=== PATIENT | female | born 1955 | race Caucasian/White ===

== ENCOUNTER 2020-09-03 07:46 | Inpatient (IN) | payer OTHER ==
[~2020-09-03] VITALS: Ht 172.7 cm; Wt 114.3 kg
[~2020-09-03 07:46] MED LIST: LOMOTIL1 EA GT; Z CIPRO PO; Z.0.BENICAR20 MG PO; Z.0.FLAGYL500 MG PO; [UNRECOGNIZED DRUG - OTHER] PO
[2020-09-03] MEDS ORDERED: SODIUM CHLORIDE 0.9% 1000ML 1,000 ML IV STA (07:59)
[2020-09-03 08:26] LABS: BASOPHILS # (AUTO) 0.1 (0.0-0.1); BASOPHILS % 0.6 % (0.0-1.0); EOSINOPHILS # (AUTO) 0.3 (0.0-0.4); EOSINOPHILS % 1.6 % (0.0-6.0); HEMATOCRIT 42.9 % (34.2-44.1); HEMOGLOBIN 13.5 g/dL (12.0-16.0); LYMPHOCYTES # (AUTO) 2.4 (1.0-3.2); LYMPHOCYTES % 15.7 % (18.0-39.1); MEAN CORPUSCULAR HEMOGLOBIN 28.6 pg (28-32); MEAN CORPUSCULAR HGB CONC 31.5 g/dL (31-35); MEAN CORPUSCULAR VOLUME 90.9 fL (81-99); MONOCYTES # (AUTO) 1.6 (0.2-0.8); MONOCYTES % 10.2 % (4.4-11.3); NEUTROPHILS # (AUTO) 11.1 (2.1-6.9); NEUTROPHILS % 71.3 % (38.7-80.0); PLATELET COUNT 361 x10e3/uL (140-360); RED BLOOD COUNT 4.72 x10e6/uL (3.6-5.1); RED CELL DISTRIBUTION WIDTH 13.2 % (11.7-14.4)
[2020-09-03] MEDS ORDERED: DIATRIZOATE MEGL/DIATRIZOA SOD 30 ML BTL PO ONE (08:26)
[2020-09-03] MEDS ORDERED: MORPHINE SULFATE INJ 4 MG/ML INJ 1ML IV ONE (08:30)
[2020-09-03 08:37] LABS: CLARITY,URINE CLEAR (CLEAR); COLOR,URINE YELLOW (YELLOW); KETONES,URINE NEGATIVE (NEGATIVE); LEUKOCYTE ESTERASE ,URINE SMALL (NEGATIVE); NITRITE,URINE NEGATIVE (NEGATIVE); PROTEIN,URINE DIPSTICK 1+ (NEGATIVE)
[2020-09-03] MEDS: ONDANSETRON HCL INJ 2MG/ML 2ML 2 MG/ML VIAL IV NR (08:37)
[2020-09-03 08:48] LABS: ALBUMIN 3.3 g/dL (3.5-5.0); ALBUMIN/GLOBULIN RATIO 0.6 (0.8-2.0); ANION GAP 14.8 mmol/L (8-16); CALCIUM 9.8 mg/dL (8.4-10.2); CREATININE, SERUM 1.04 mg/dL (0.57-1.11); POTASSIUM 4.8 mmol/L (3.5-5.1)
[2020-09-03 08:55] LABS: BACTERIA,URINE FEW /HPF; EPITHELIAL CELLS,URINE MANY /LPF; RBC,URINE 0-5 /HPF (0-5); WBC,URINE (MAN) 21-50 /HPF (0-5)
[2020-09-03] MEDS ORDERED: PROMETHAZINE 25MG/ NS 50ML (IV) IV NR (09:30)
[2020-09-03] MEDS ORDERED: SODIUM CHLORIDE 0.9% 50ML 50 ML ONE (09:30)
[2020-09-03] MEDS ORDERED: IOPAMIDOL 370 MG/ML 200 ML INFUS..BTL INJ ONE (09:30)
[2020-09-03] MEDS: PIPERACILLIN/TAZOBACTAM 3.375 GM in SODIUM CHLORIDE 0.9% 50ML 50 ML IV SCH ×2 (09:40→17:03)
[2020-09-03] MEDS: MORPHINE SULFATE INJ 4 MG/ML INJ 1ML IV NR ×2 (09:40→13:30)
[2020-09-03] MEDS: SODIUM CHLORIDE 0.9% 1000ML 1,000 ML IV SCH ×2 (13:30→17:04)
[2020-09-03] MEDS: FAMOTIDINE 20 MG/2 ML VIAL IV SCH (13:30)
[2020-09-03] MEDS: METRONIDAZOLE 500MG/NS 100ML 100 ML IV SCH ×2 (13:30→21:47)
[2020-09-03 15:45] VITALS: BP 131/72
[2020-09-03 15:53] VITALS: BP 131/69
[2020-09-03 15:55] VITALS: BP 131/72
[2020-09-03] MEDS ORDERED: OMPERAZOLE PO (16:09)
[2020-09-03] MEDS ORDERED: IRBESARTAN150 MG PO (16:09)
[2020-09-03] MEDS ORDERED: MELOXICAM7.5 MG PO (16:09)
[2020-09-03] MEDS ORDERED: LANTUS 3ML100 UNITS/ SC (16:09)
[2020-09-03] MEDS ORDERED: MONTELUKAST SOD10 MG PO (16:09)
[2020-09-03] MEDS ORDERED: HYOSCYAMINE0.375 MG PO (16:09)
[2020-09-03] MEDS ORDERED: MIRALAX17 GM PO (16:09)
[2020-09-03] MEDS ORDERED: CARVEDILOL12.5 MG PO (16:09)
[2020-09-03] MEDS ORDERED: DEXTROSE 50% SYRINGE 50 ML IV PRN (16:30)
[2020-09-03] MEDS: INSULIN LISPRO 100 UNIT/1 ML 3ML VIAL SQ SCH ×2 (16:30→20:43)
[2020-09-03] MEDS: ONDANSETRON HCL INJ 2MG/ML 2ML 2 MG/ML VIAL IV PRN (18:12)
[2020-09-03 20:41] VITALS: BP 126/51
[2020-09-03 20:59] VITALS: BP 142/77
[2020-09-03] MEDS: MORPHINE SULFATE INJ 4 MG/ML INJ 1ML IV PRN (21:50)
[2020-09-04] VITALS (8 sets, daily range): BP systolic 112–152; BP diastolic 56–79
[2020-09-04] MEDS ORDERED: ACETAMINOPHEN 325 MG TAB PO ONE (00:15)
[2020-09-04] MEDS: PIPERACILLIN/TAZOBACTAM 3.375 GM in SODIUM CHLORIDE 0.9% 50ML 50 ML IV SCH ×4 (00:51→17:33)
[2020-09-04] MEDS: SODIUM CHLORIDE 0.9% 1000ML 1,000 ML IV SCH ×2 (03:19→14:50)
[2020-09-04] MEDS: METRONIDAZOLE 500MG/NS 100ML 100 ML IV SCH ×3 (05:03→22:51)
[2020-09-04] MEDS: MORPHINE SULFATE INJ 4 MG/ML INJ 1ML IV PRN ×5 (05:05→23:44)
[2020-09-04 05:16] LABS: BASOPHILS # (AUTO) 0.1 (0.0-0.1); BASOPHILS % 0.4 % (0.0-1.0); EOSINOPHILS % 0.1 % (0.0-6.0); HEMATOCRIT 37.6 % (34.2-44.1); HEMOGLOBIN 11.6 g/dL (12.0-16.0); LYMPHOCYTES # (AUTO) 2.3 (1.0-3.2); LYMPHOCYTES % 15.1 % (18.0-39.1); MEAN CORPUSCULAR HEMOGLOBIN 28.4 pg (28-32); MEAN CORPUSCULAR HGB CONC 30.9 g/dL (31-35); MEAN CORPUSCULAR VOLUME 91.9 fL (81-99); MONOCYTES # (AUTO) 1.7 (0.2-0.8); MONOCYTES % 11.2 % (4.4-11.3); NEUTROPHILS # (AUTO) 10.8 (2.1-6.9); NEUTROPHILS % 72.6 % (38.7-80.0); PLATELET COUNT 302 x10e3/uL (140-360); RED BLOOD COUNT 4.09 x10e6/uL (3.6-5.1); RED CELL DISTRIBUTION WIDTH 13.2 % (11.7-14.4)
[2020-09-04 05:39] LABS: ALBUMIN 2.6 g/dL (3.5-5.0); ALBUMIN/GLOBULIN RATIO 0.6 (0.8-2.0); ANION GAP 15.9 mmol/L (8-16); CALCIUM 8.8 mg/dL (8.4-10.2); CREATININE, SERUM 1.31 mg/dL (0.57-1.11); POTASSIUM 4.9 mmol/L (3.5-5.1)
[2020-09-04] MEDS ORDERED: ACETAMINOPHEN 325 MG TAB PO PRN (06:00)
[2020-09-04] MEDS: INSULIN LISPRO 100 UNIT/1 ML 3ML VIAL SQ SCH ×4 (07:30→21:50)
[2020-09-04] MEDS: FAMOTIDINE 20 MG/2 ML VIAL IV SCH ×2 (08:17→16:35)
[2020-09-04] MEDS: ONDANSETRON HCL INJ 2MG/ML 2ML 2 MG/ML VIAL IV PRN ×2 (09:30→13:30)
[2020-09-04 16:57] LABS: BASOPHILS # (AUTO) 0.1 (0.0-0.1); BASOPHILS % 0.5 % (0.0-1.0); EOSINOPHILS # (AUTO) 0.1 (0.0-0.4); EOSINOPHILS % 0.6 % (0.0-6.0); HEMATOCRIT 39.7 % (34.2-44.1); HEMOGLOBIN 12.3 g/dL (12.0-16.0); LYMPHOCYTES # (AUTO) 1.6 (1.0-3.2); LYMPHOCYTES % 9.2 % (18.0-39.1); MEAN CORPUSCULAR HEMOGLOBIN 28.8 pg (28-32); MONOCYTES # (AUTO) 2.1 (0.2-0.8); MONOCYTES % 11.9 % (4.4-11.3); NEUTROPHILS # (AUTO) 13.4 (2.1-6.9); NEUTROPHILS % 77.1 % (38.7-80.0); PLATELET COUNT 291 x10e3/uL (140-360); RED BLOOD COUNT 4.27 x10e6/uL (3.6-5.1); RED CELL DISTRIBUTION WIDTH 13.2 % (11.7-14.4)
[2020-09-04] MEDS ORDERED: Vancomycin IV 1 GM in SODIUM CHLORIDE 0.9% 250ML 250 ML IV ONE (19:45)
[2020-09-04] MEDS ORDERED: ACETAMINOPHEN 1000 MG/100 ML IV PRN (19:45)
[2020-09-05] VITALS (9 sets, daily range): BP systolic 106–142; BP diastolic 66–89
[2020-09-05] MEDS: PIPERACILLIN/TAZOBACTAM 3.375 GM in SODIUM CHLORIDE 0.9% 50ML 50 ML IV SCH ×3 (00:49→13:05)
[2020-09-05 05:35] LABS: BASOPHILS # (AUTO) 0.1 (0.0-0.1); BASOPHILS % 0.4 % (0.0-1.0); EOSINOPHILS # (AUTO) 0.1 (0.0-0.4); EOSINOPHILS % 0.3 % (0.0-6.0); HEMOGLOBIN 11.1 g/dL (12.0-16.0); LYMPHOCYTES # (AUTO) 3.1 (1.0-3.2); LYMPHOCYTES % 21.4 % (18.0-39.1); MEAN CORPUSCULAR HEMOGLOBIN 28.5 pg (28-32); MEAN CORPUSCULAR HGB CONC 30.8 g/dL (31-35); MEAN CORPUSCULAR VOLUME 92.5 fL (81-99); MONOCYTES # (AUTO) 1.6 (0.2-0.8); MONOCYTES % 11.1 % (4.4-11.3); NEUTROPHILS # (AUTO) 9.7 (2.1-6.9); NEUTROPHILS % 66.5 % (38.7-80.0); PLATELET COUNT 264 x10e3/uL (140-360); RED BLOOD COUNT 3.89 x10e6/uL (3.6-5.1); RED CELL DISTRIBUTION WIDTH 13.2 % (11.7-14.4)
[2020-09-05] MEDS: METRONIDAZOLE 500MG/NS 100ML 100 ML IV SCH ×3 (05:43→20:05)
[2020-09-05 05:58] LABS: ANION GAP 11.3 mmol/L (8-16); CALCIUM 8.6 mg/dL (8.4-10.2); CREATININE, SERUM 0.98 mg/dL (0.57-1.11); POTASSIUM 4.3 mmol/L (3.5-5.1)
[2020-09-05] MEDS: SODIUM CHLORIDE 0.9% 1000ML 1,000 ML IV SCH ×3 (06:11→20:05)
[2020-09-05] MEDS: MORPHINE SULFATE INJ 4 MG/ML INJ 1ML IV PRN ×4 (06:17→21:22)
[2020-09-05] MEDS: ONDANSETRON HCL INJ 2MG/ML 2ML 2 MG/ML VIAL IV NR (06:19)
[2020-09-05 06:28] LABS: CLARITY,URINE CLEAR (CLEAR); COLOR,URINE YELLOW (YELLOW); KETONES,URINE TRACE (NEGATIVE); LEUKOCYTE ESTERASE ,URINE NEGATIVE (NEGATIVE); NITRITE,URINE NEGATIVE (NEGATIVE); PROTEIN,URINE DIPSTICK TRACE (NEGATIVE); URINE UROBILINOGEN 0.2 mg/dL (0.2 - 1)
[2020-09-05 06:40] LABS: WBC,URINE (MAN) 21-50 /HPF (0-5)
[2020-09-05 06:41] LABS: BACTERIA,URINE MODERATE /HPF; EPITHELIAL CELLS,URINE FEW /LPF; RBC,URINE 0-5 /HPF (0-5)
[2020-09-05 06:44] LABS: TRANSITIONAL EPI CELLS,URINE FEW
[2020-09-05 06:45] LABS: YEAST,URINE FEW
[2020-09-05] MEDS ORDERED: HYDRALAZINE HCL 20 MG/ML VIAL IV PRN (07:15)
[2020-09-05] MEDS: INSULIN LISPRO 100 UNIT/1 ML 3ML VIAL SQ SCH ×4 (07:30→21:00)
[2020-09-05] MEDS: FAMOTIDINE 20 MG/2 ML VIAL IV SCH ×2 (08:36→16:41)
[2020-09-05] MEDS: ONDANSETRON HCL INJ 2MG/ML 2ML 2 MG/ML VIAL IV PRN ×2 (14:51→21:22)
[2020-09-05] MEDS: CEFEPIME 2 GM in SODIUM CHLORIDE 0.9% 100 ML IV SCH (22:37)
[2020-09-06] VITALS (8 sets, daily range): BP systolic 116–156; BP diastolic 51–82
[2020-09-06] MEDS: METRONIDAZOLE 500MG/NS 100ML 100 ML IV SCH ×4 (01:59→20:00)
[2020-09-06] MEDS: ONDANSETRON HCL INJ 2MG/ML 2ML 2 MG/ML VIAL IV PRN ×4 (02:37→18:45)
[2020-09-06] MEDS: MORPHINE SULFATE INJ 4 MG/ML INJ 1ML IV PRN ×4 (02:37→18:45)
[2020-09-06] MEDS: CEFEPIME 2 GM in SODIUM CHLORIDE 0.9% 100 ML IV SCH ×3 (05:49→21:07)
[2020-09-06 06:15] LABS: BASOPHILS # (AUTO) 0.1 (0.0-0.1); BASOPHILS % 0.6 % (0.0-1.0); EOSINOPHILS # (AUTO) 0.2 (0.0-0.4); EOSINOPHILS % 1.4 % (0.0-6.0); HEMATOCRIT 36.9 % (34.2-44.1); HEMOGLOBIN 11.1 g/dL (12.0-16.0); LYMPHOCYTES # (AUTO) 2.5 (1.0-3.2); LYMPHOCYTES % 22.7 % (18.0-39.1); MEAN CORPUSCULAR HEMOGLOBIN 28.8 pg (28-32); MEAN CORPUSCULAR HGB CONC 30.1 g/dL (31-35); MONOCYTES # (AUTO) 1.2 (0.2-0.8); MONOCYTES % 10.9 % (4.4-11.3); NEUTROPHILS # (AUTO) 7.1 (2.1-6.9); NEUTROPHILS % 63.9 % (38.7-80.0); PLATELET COUNT 217 x10e3/uL (140-360); RED BLOOD COUNT 3.86 x10e6/uL (3.6-5.1); RED CELL DISTRIBUTION WIDTH 13.5 % (11.7-14.4)
[2020-09-06 06:21] LABS: MEAN CORPUSCULAR VOLUME 95.6 fL (81-99)
[2020-09-06 06:45] LABS: ALBUMIN 2.5 g/dL (3.5-5.0); ALBUMIN/GLOBULIN RATIO 0.6 (0.8-2.0); ANION GAP 14.9 mmol/L (8-16); CALCIUM 8.7 mg/dL (8.4-10.2); CREATININE, SERUM 0.86 mg/dL (0.57-1.11); MAGNESIUM 1.8 MG/DL (1.3-2.1); POTASSIUM 4.9 mmol/L (3.5-5.1)
[2020-09-06] MEDS: INSULIN LISPRO 100 UNIT/1 ML 3ML VIAL SQ SCH ×4 (07:30→20:26)
[2020-09-06] MEDS: SODIUM CHLORIDE 0.9% 1000ML 1,000 ML IV SCH (07:38)
[2020-09-06] MEDS: FAMOTIDINE 20 MG/2 ML VIAL IV SCH ×2 (08:48→17:48)
[2020-09-07] VITALS (8 sets, daily range): BP systolic 128–142; BP diastolic 62–85
[2020-09-07] MEDS: MORPHINE SULFATE INJ 4 MG/ML INJ 1ML IV PRN ×4 (00:05→21:17)
[2020-09-07] MEDS: ONDANSETRON HCL INJ 2MG/ML 2ML 2 MG/ML VIAL IV PRN ×4 (00:05→21:17)
[2020-09-07] MEDS: METRONIDAZOLE 500MG/NS 100ML 100 ML IV SCH ×4 (02:00→20:18)
[2020-09-07 03:10] LABS: BASOPHILS # (AUTO) 0.1 (0.0-0.1); BASOPHILS % 0.7 % (0.0-1.0); EOSINOPHILS # (AUTO) 0.2 (0.0-0.4); EOSINOPHILS % 2.1 % (0.0-6.0); HEMATOCRIT 36.8 % (34.2-44.1); HEMOGLOBIN 11.2 g/dL (12.0-16.0); LYMPHOCYTES # (AUTO) 2.4 (1.0-3.2); LYMPHOCYTES % 23.3 % (18.0-39.1); MEAN CORPUSCULAR HEMOGLOBIN 28.6 pg (28-32); MEAN CORPUSCULAR HGB CONC 30.4 g/dL (31-35); MEAN CORPUSCULAR VOLUME 94.1 fL (81-99); MONOCYTES # (AUTO) 1.2 (0.2-0.8); MONOCYTES % 11.5 % (4.4-11.3); NEUTROPHILS # (AUTO) 6.3 (2.1-6.9); NEUTROPHILS % 61.9 % (38.7-80.0); PLATELET COUNT 294 x10e3/uL (140-360); RED BLOOD COUNT 3.91 x10e6/uL (3.6-5.1); RED CELL DISTRIBUTION WIDTH 13.4 % (11.7-14.4)
[2020-09-07 03:29] LABS: ALBUMIN 2.7 g/dL (3.5-5.0); ALBUMIN/GLOBULIN RATIO 0.6 (0.8-2.0); CREATININE, SERUM 0.88 mg/dL (0.57-1.11); MAGNESIUM 1.8 MG/DL (1.3-2.1)
[2020-09-07] MEDS: CEFEPIME 2 GM in SODIUM CHLORIDE 0.9% 100 ML IV SCH ×3 (06:00→21:09)
[2020-09-07] MEDS ORDERED: FLUCONAZOLE 200 MG/100 ML 100 ML IV SCH (07:30)
[2020-09-07] MEDS: INSULIN LISPRO 100 UNIT/1 ML 3ML VIAL SQ SCH ×4 (07:30→20:18)
[2020-09-07] MEDS ORDERED: IOPAMIDOL 370 MG/ML 200 ML INFUS..BTL INJ ONE (08:38)
[2020-09-07] MEDS ORDERED: SODIUM CHLORIDE 0.9% 50ML 50 ML ONE (08:38)
[2020-09-07] MEDS: SODIUM CHLORIDE 0.9% 1000ML 1,000 ML IV SCH ×3 (08:59→21:09)
[2020-09-07] MEDS: FAMOTIDINE 20 MG/2 ML VIAL IV SCH ×2 (09:00→17:02)
[2020-09-07] MEDS: Vancomycin IV 1 GM in SODIUM CHLORIDE 0.9% 250ML 250 ML IV SCH (16:13)
[2020-09-08] VITALS (7 sets, daily range): BP systolic 141–157; BP diastolic 71–84
[2020-09-08] MEDS: METRONIDAZOLE 500MG/NS 100ML 100 ML IV SCH ×4 (01:27→21:12)
[2020-09-08] MEDS: Vancomycin IV 1 GM in SODIUM CHLORIDE 0.9% 250ML 250 ML IV SCH ×2 (01:27→14:04)
[2020-09-08] MEDS: MORPHINE SULFATE INJ 4 MG/ML INJ 1ML IV PRN (03:56)
[2020-09-08] MEDS: ONDANSETRON HCL INJ 2MG/ML 2ML 2 MG/ML VIAL IV PRN ×3 (03:56→11:31)
[2020-09-08] MEDS: CEFEPIME 2 GM in SODIUM CHLORIDE 0.9% 100 ML IV SCH ×3 (05:32→21:12)
[2020-09-08 06:05] LABS: BASOPHILS # (AUTO) 0.1 (0.0-0.1); BASOPHILS % 0.8 % (0.0-1.0); EOSINOPHILS # (AUTO) 0.3 (0.0-0.4); EOSINOPHILS % 3.1 % (0.0-6.0); HEMATOCRIT 36.3 % (34.2-44.1); LYMPHOCYTES % 21.3 % (18.0-39.1); MEAN CORPUSCULAR HEMOGLOBIN 28.4 pg (28-32); MEAN CORPUSCULAR HGB CONC 30.3 g/dL (31-35); MEAN CORPUSCULAR VOLUME 93.6 fL (81-99); NEUTROPHILS # (AUTO) 6.1 (2.1-6.9); NEUTROPHILS % 64.3 % (38.7-80.0); PLATELET COUNT 280 x10e3/uL (140-360); RED BLOOD COUNT 3.88 x10e6/uL (3.6-5.1); RED CELL DISTRIBUTION WIDTH 13.4 % (11.7-14.4)
[2020-09-08 06:34] LABS: ALBUMIN 2.5 g/dL (3.5-5.0); ALBUMIN/GLOBULIN RATIO 0.6 (0.8-2.0); CALCIUM 8.7 mg/dL (8.4-10.2); CREATININE, SERUM 0.84 mg/dL (0.57-1.11)
[2020-09-08] MEDS ORDERED: MORPHINE SULFATE INJ 2 MG/ML SYR IV PRN (07:00)
[2020-09-08] MEDS: ACETAMINOPHEN/CODEINE 300MG - 30MG TAB PO PRN ×2 (07:16→11:31)
[2020-09-08] MEDS: FAMOTIDINE 20 MG/2 ML VIAL IV SCH ×2 (07:16→17:06)
[2020-09-08] MEDS: SODIUM CHLORIDE 0.9% 1000ML 1,000 ML IV SCH (07:16)
[2020-09-08] MEDS: INSULIN LISPRO 100 UNIT/1 ML 3ML VIAL SQ SCH ×4 (07:30→21:00)
[2020-09-08] MEDS ORDERED: MELATONIN 5 MG TABLET PO SCH (21:00)
[2020-09-09] VITALS: BP 145/74
[2020-09-09] MEDS: METRONIDAZOLE 500MG/NS 100ML 100 ML IV SCH (01:29)
[2020-09-09] MEDS: SODIUM CHLORIDE 0.9% 1000ML 1,000 ML IV SCH (01:29)
[2020-09-09] MEDS: Vancomycin IV 1 GM in SODIUM CHLORIDE 0.9% 250ML 250 ML IV SCH (01:30)
[2020-09-09 04:26] VITALS: BP 160/78
[2020-09-09] MEDS: CEFEPIME 2 GM in SODIUM CHLORIDE 0.9% 100 ML IV SCH (05:06)
[2020-09-09 05:19] LABS: BASOPHILS # (AUTO) 0.1 (0.0-0.1); EOSINOPHILS # (AUTO) 0.3 (0.0-0.4); HEMATOCRIT 38.8 % (34.2-44.1); HEMOGLOBIN 11.7 g/dL (12.0-16.0); LYMPHOCYTES # (AUTO) 1.9 (1.0-3.2); LYMPHOCYTES % 20.3 % (18.0-39.1); MEAN CORPUSCULAR HEMOGLOBIN 28.4 pg (28-32); MEAN CORPUSCULAR HGB CONC 30.2 g/dL (31-35); MEAN CORPUSCULAR VOLUME 94.2 fL (81-99); MONOCYTES # (AUTO) 0.9 (0.2-0.8); MONOCYTES % 9.6 % (4.4-11.3); NEUTROPHILS # (AUTO) 6.1 (2.1-6.9); NEUTROPHILS % 65.5 % (38.7-80.0); PLATELET COUNT 274 x10e3/uL (140-360); RED BLOOD COUNT 4.12 x10e6/uL (3.6-5.1); RED CELL DISTRIBUTION WIDTH 13.5 % (11.7-14.4)
[2020-09-09 06:05] LABS: ALBUMIN 2.6 g/dL (3.5-5.0); ALBUMIN/GLOBULIN RATIO 0.7 (0.8-2.0); ANION GAP 12.6 mmol/L (8-16); CALCIUM 8.7 mg/dL (8.4-10.2); CREATININE, SERUM 0.78 mg/dL (0.57-1.11); POTASSIUM 3.6 mmol/L (3.5-5.1)
[2020-09-09] MEDS ORDERED: FLAGYL500 MG PO (06:18)
[2020-09-09] MEDS ORDERED: ULTRAM 50MG50 MG PO (06:18)
[2020-09-09] MEDS ORDERED: CIPRO500 MG PO (06:18)
[2020-09-09 08:24] VITALS: BP 152/90
[2020-09-09 08:26] VITALS: BP 152/90
[2020-09-09] MEDS: ACETAMINOPHEN/CODEINE 300MG - 30MG TAB PO PRN (08:32)
== END 2020-09-09 10:17 | disposition home or self-care (01) | DRG 872 ==
LOC: ER 08:53 → ERHOLD 09:58 → MED/SURG 15:24 → MED/SURG3 09-05 15:22
PROVIDERS: ADMIT Internal Medicine; ATTEND Internal Medicine
DX: A41.9 Sepsis, unspecified organism (principal); K57.32 Diverticulitis of large intestine without perforation or abscess without bleeding; B37.49 Other urogenital candidiasis; K21.9 Gastro-esophageal reflux disease without esophagitis; E66.01 Morbid (severe) obesity due to excess calories; Z68.38 Body mass index [BMI] 38.0-38.9, adult; E78.5 Hyperlipidemia, unspecified; I10 Essential (primary) hypertension; E11.9 Type 2 diabetes mellitus without complications; K43.9 Ventral hernia without obstruction or gangrene; R09.02 Hypoxemia
CPT/HCPCS: 36415; 71046; 74177; 80048; 80053; 81001; 82948; 83690; 83735; 85025; 87040; 87071; 87086; 87205; 99284; J0692; J1450; J2270; J2405; J2543; J2550; J3370; J7030; J7050; Q9967; U0002

== ENCOUNTER 2020-11-08 10:07 | Emergency (ER) | payer OTHER ==
[~2020-11-08] VITALS: Ht 172.7 cm; Wt 114.3 kg
[~2020-11-08 10:07] MED LIST changes: +CARVEDILOL12.5 MG PO; +CIPRO500 MG PO; +FLAGYL500 MG PO; +HYOSCYAMINE0.375 MG PO; +IRBESARTAN150 MG PO; +LANTUS 3ML100 UNITS/ SC; +MELOXICAM7.5 MG PO; +MIRALAX17 GM PO; +MONTELUKAST SOD10 MG PO; +OMPERAZOLE PO; +ULTRAM 50MG50 MG PO
[2020-11-08] MEDS ORDERED: SODIUM CHLORIDE 0.9% 1000ML 1,000 ML IV STA (10:35)
[2020-11-08] MEDS ORDERED: KETOROLAC TROMETHAMINE 30 MG/ML VIAL IV STA (10:35)
[2020-11-08 10:45] LABS: BASOPHILS # (AUTO) 0.1 (0.0-0.1); BASOPHILS % 0.6 % (0.0-1.0); EOSINOPHILS # (AUTO) 0.2 (0.0-0.4); EOSINOPHILS % 1.8 % (0.0-6.0); HEMATOCRIT 44.4 % (34.2-44.1); LYMPHOCYTES # (AUTO) 2.4 (1.0-3.2); LYMPHOCYTES % 22.4 % (18.0-39.1); MEAN CORPUSCULAR HEMOGLOBIN 28.7 pg (28-32); MEAN CORPUSCULAR HGB CONC 31.5 g/dL (31-35); MEAN CORPUSCULAR VOLUME 91.2 fL (81-99); MONOCYTES # (AUTO) 0.9 (0.2-0.8); MONOCYTES % 8.6 % (4.4-11.3); NEUTROPHILS % 66.2 % (38.7-80.0); PLATELET COUNT 366 x10e3/uL (140-360); RED BLOOD COUNT 4.87 x10e6/uL (3.6-5.1); RED CELL DISTRIBUTION WIDTH 13.4 % (11.7-14.4)
[2020-11-08] MEDS ORDERED: ONDANSETRON ODT4 MG PO (10:57)
[2020-11-08] MEDS ORDERED: AUGMENTIN 875-1 EACH PO (10:57)
[2020-11-08 11:06] LABS: ALBUMIN 3.4 g/dL (3.5-5.0); ALBUMIN/GLOBULIN RATIO 0.7 (0.8-2.0); ANION GAP 14.2 mmol/L (8-16); CALCIUM 9.7 mg/dL (8.4-10.2); CREATININE, SERUM 0.93 mg/dL (0.57-1.11); POTASSIUM 4.2 mmol/L (3.5-5.1)
[2020-11-08 12:02] LABS: CLARITY,URINE CLOUDY (CLEAR); COLOR,URINE YELLOW (YELLOW); LEUKOCYTE ESTERASE ,URINE LARGE (NEGATIVE); NITRITE,URINE NEGATIVE (NEGATIVE); PROTEIN,URINE DIPSTICK 1+ (NEGATIVE)
[2020-11-08 12:03] LABS: KETONES,URINE NEGATIVE (NEGATIVE); URINE UROBILINOGEN 0.2 mg/dL (0.2 - 1)
[2020-11-08 12:14] LABS: BACTERIA,URINE FEW /HPF; EPITHELIAL CELLS,URINE FEW /LPF; RBC,URINE >50 /HPF (0-5); WBC,URINE (MAN) >50 /HPF (0-5)
== END 2020-11-08 12:56 | disposition home or self-care (01) ==
LOC: ER 10:13
DX: R10.32 Left lower quadrant pain (principal); K57.92 Diverticulitis of intestine, part unspecified, without perforation or abscess without bleeding; E11.65 Type 2 diabetes mellitus with hyperglycemia; I10 Essential (primary) hypertension; E78.5 Hyperlipidemia, unspecified; K21.9 Gastro-esophageal reflux disease without esophagitis; Z96.651 Presence of right artificial knee joint
CPT/HCPCS: 36415; 80053; 81001; 83690; 85025; 99283; J1885; J7030

== ENCOUNTER 2020-11-09 02:58 | Inpatient (IN) | payer OTHER ==
[~2020-11-09] VITALS: Ht 172.7 cm; Wt 100.7 kg
[~2020-11-09 02:58] MED LIST changes: +AUGMENTIN 875-1 EACH PO; +ONDANSETRON ODT4 MG PO
[2020-11-09 03:24] LABS: CLARITY,URINE CLOUDY (CLEAR); COLOR,URINE AMBER (YELLOW); LEUKOCYTE ESTERASE ,URINE LARGE (NEGATIVE); NITRITE,URINE NEGATIVE (NEGATIVE); PROTEIN,URINE DIPSTICK 2+ (NEGATIVE)
[2020-11-09 03:25] LABS: KETONES,URINE NEGATIVE (NEGATIVE); URINE UROBILINOGEN 1 mg/dL (0.2 - 1)
[2020-11-09 03:26] LABS: BASOPHILS # (AUTO) 0.1 (0.0-0.1); BASOPHILS % 0.5 % (0.0-1.0); EOSINOPHILS # (AUTO) 0.4 (0.0-0.4); EOSINOPHILS % 2.3 % (0.0-6.0); HEMATOCRIT 44.7 % (34.2-44.1); HEMOGLOBIN 13.9 g/dL (12.0-16.0); LYMPHOCYTES # (AUTO) 1.9 (1.0-3.2); LYMPHOCYTES % 11.9 % (18.0-39.1); MEAN CORPUSCULAR HEMOGLOBIN 28.7 pg (28-32); MEAN CORPUSCULAR HGB CONC 31.1 g/dL (31-35); MEAN CORPUSCULAR VOLUME 92.2 fL (81-99); MONOCYTES # (AUTO) 1.5 (0.2-0.8); MONOCYTES % 9.6 % (4.4-11.3); NEUTROPHILS # (AUTO) 11.7 (2.1-6.9); NEUTROPHILS % 75.2 % (38.7-80.0); PLATELET COUNT 332 x10e3/uL (140-360); RED BLOOD COUNT 4.85 x10e6/uL (3.6-5.1); RED CELL DISTRIBUTION WIDTH 13.6 % (11.7-14.4)
[2020-11-09 03:27] LABS: BACTERIA,URINE MANY /HPF; EPITHELIAL CELLS,URINE FEW /LPF; RBC,URINE >50 /HPF (0-5); TRANSITIONAL EPI CELLS,URINE FEW; WBC,URINE (MAN) >50 /HPF (0-5)
[2020-11-09] MEDS ORDERED: ONDANSETRON HCL INJ 2MG/ML 2ML 2 MG/ML VIAL IV STA (03:33)
[2020-11-09 03:35] LABS: INR 1.07; PARTIAL THROMBOPLASTIN TIME 32.4 seconds (23.8-35.5); PROTHROMBIN TIME 14.1 seconds (11.9-14.5)
[2020-11-09 03:44] LABS: ALBUMIN 3.2 g/dL (3.5-5.0); ALBUMIN/GLOBULIN RATIO 0.7 (0.8-2.0); CALCIUM 9.4 mg/dL (8.4-10.2); CREATININE, SERUM 1.01 mg/dL (0.57-1.11)
[2020-11-09] MEDS ORDERED: DEXTROSE 50% SYRINGE 50 ML IV PRN (04:00)
[2020-11-09] MEDS: SODIUM CHLORIDE 0.9% 1000ML 1,000 ML IV SCH ×2 (04:00→13:48)
[2020-11-09] MEDS: CEFTRIAXONE 1 GM in SODIUM CHLORIDE 0.9% 50ML 50 ML IV SCH (04:07)
[2020-11-09] MEDS: METRONIDAZOLE 500MG/NS 100ML 100 ML IV SCH ×4 (07:28→23:09)
[2020-11-09] MEDS: INSULIN REGULAR, HUMAN 100 UNIT/1 ML SQ SCH ×4 (07:30→20:13)
[2020-11-09] MEDS ORDERED: IOPAMIDOL 370 MG/ML 200 ML INFUS..BTL INJ ONE (08:58)
[2020-11-09] MEDS ORDERED: SODIUM CHLORIDE 0.9% 50ML 50 ML ONE (08:58)
[2020-11-09 12:29] VITALS: BP 133/87
[2020-11-09 12:47] VITALS: BP 133/87
[2020-11-09] MEDS ORDERED: HYDRALAZINE HCL 20 MG/ML VIAL IV PRN ×2 (13:45→15:00)
[2020-11-09] MEDS: MORPHINE SULFATE INJ 2 MG/ML SYR IV PRN ×2 (13:59→18:22)
[2020-11-09] MEDS: ONDANSETRON HCL INJ 2MG/ML 2ML 2 MG/ML VIAL IV PRN (13:59)
[2020-11-09 15:51] VITALS: BP 152/74
[2020-11-09] MEDS: MORPHINE SULFATE INJ 4 MG/ML INJ 1ML IV PRN (19:37)
[2020-11-09 20:16] VITALS: BP 124/72
[2020-11-09 21:00] VITALS: BP 124/72
[2020-11-10] VITALS (9 sets, daily range): BP systolic 121–140; BP diastolic 67–80
[2020-11-10] MEDS: SODIUM CHLORIDE 0.9% 1000ML 1,000 ML IV SCH ×2 (00:09→18:44)
[2020-11-10] MEDS: CEFTRIAXONE 1 GM in SODIUM CHLORIDE 0.9% 50ML 50 ML IV SCH (01:46)
[2020-11-10] MEDS: METRONIDAZOLE 500MG/NS 100ML 100 ML IV SCH ×3 (04:27→17:54)
[2020-11-10] MEDS: ONDANSETRON HCL INJ 2MG/ML 2ML 2 MG/ML VIAL IV PRN ×4 (04:34→22:21)
[2020-11-10] MEDS: MORPHINE SULFATE INJ 4 MG/ML INJ 1ML IV PRN (04:44)
[2020-11-10] MEDS ORDERED: HYDROMORPHONE 1MG/1ML INJ IV PRN ×2 (06:15→22:15)
[2020-11-10 07:30] LABS: BASOPHILS # (AUTO) 0.1 (0.0-0.1); BASOPHILS % 0.6 % (0.0-1.0); EOSINOPHILS # (AUTO) 0.3 (0.0-0.4); EOSINOPHILS % 3.9 % (0.0-6.0); HEMATOCRIT 40.2 % (34.2-44.1); HEMOGLOBIN 12.4 g/dL (12.0-16.0); LYMPHOCYTES # (AUTO) 2.2 (1.0-3.2); LYMPHOCYTES % 28.1 % (18.0-39.1); MEAN CORPUSCULAR HEMOGLOBIN 28.2 pg (28-32); MEAN CORPUSCULAR HGB CONC 30.8 g/dL (31-35); MEAN CORPUSCULAR VOLUME 91.6 fL (81-99); MONOCYTES % 12.3 % (4.4-11.3); NEUTROPHILS # (AUTO) 4.4 (2.1-6.9); NEUTROPHILS % 54.7 % (38.7-80.0); PLATELET COUNT 302 x10e3/uL (140-360); RED BLOOD COUNT 4.39 x10e6/uL (3.6-5.1); RED CELL DISTRIBUTION WIDTH 13.5 % (11.7-14.4)
[2020-11-10] MEDS: INSULIN REGULAR, HUMAN 100 UNIT/1 ML SQ SCH ×4 (07:30→20:46)
[2020-11-10 07:47] LABS: ALBUMIN 2.8 g/dL (3.5-5.0); ALBUMIN/GLOBULIN RATIO 0.7 (0.8-2.0); ANION GAP 13.1 mmol/L (8-16); CALCIUM 9.1 mg/dL (8.4-10.2); CREATININE, SERUM 0.79 mg/dL (0.57-1.11); POTASSIUM 4.1 mmol/L (3.5-5.1)
[2020-11-10] MEDS: HYDROCODONE/APAP 7.5MG-325MG 1 EA TAB PO PRN (08:45)
[2020-11-10] MEDS ORDERED: POLYETHYLENE GLYCOL 3350 17 GM PACK PO PRN (16:00)
[2020-11-10] MEDS: CARVEDILOL 12.5 MG TAB PO SCH (17:00)
[2020-11-10] MEDS ORDERED: CITRATE OF MAGNESIA 300ML BOTTLE PO ONE (18:00)
[2020-11-10] MEDS ORDERED: BISACODYL 5 MG TAB EC PO ONE (20:00)
[2020-11-10] MEDS ORDERED: KETOROLAC TROMETHAMINE 30 MG/ML VIAL IM PRN (20:00)
[2020-11-10] MEDS: SIMVASTATIN 20 MG TAB PO SCH (20:46)
[2020-11-10] MEDS: TRAMADOL HCL 50 MG TAB PO PRN (20:47)
[2020-11-11] VITALS (9 sets, daily range): BP systolic 97–129; BP diastolic 58–78
[2020-11-11] MEDS: METRONIDAZOLE 500MG/NS 100ML 100 ML IV SCH ×6 (00:30→23:58)
[2020-11-11] MEDS: HYDROCODONE/APAP 7.5MG-325MG 1 EA TAB PO PRN ×3 (00:30→22:27)
[2020-11-11] MEDS: HYOSCYAMINE 0.125 MG TAB PO PRN (01:42)
[2020-11-11] MEDS: PROMETHAZINE 12.5MG/ NACL 0.9% 12.5 MG/50 ML BAG IV PRN ×2 (02:14→21:08)
[2020-11-11] MEDS: CEFTRIAXONE 1 GM in SODIUM CHLORIDE 0.9% 50ML 50 ML IV SCH (02:45)
[2020-11-11] MEDS ORDERED: KETOROLAC TROMETHAMINE 60 MG/2 ML VIAL IM ONE (02:46)
[2020-11-11] MEDS ORDERED: BISACODYL 10 MG SUPP PR ONE (06:00)
[2020-11-11 06:12] LABS: BASOPHILS # (AUTO) 0.1 (0.0-0.1); BASOPHILS % 0.5 % (0.0-1.0); EOSINOPHILS # (AUTO) 0.2 (0.0-0.4); EOSINOPHILS % 1.1 % (0.0-6.0); HEMATOCRIT 44.2 % (34.2-44.1); HEMOGLOBIN 13.5 g/dL (12.0-16.0); LYMPHOCYTES # (AUTO) 0.4 (1.0-3.2); LYMPHOCYTES % 2.7 % (18.0-39.1); MEAN CORPUSCULAR HEMOGLOBIN 28.7 pg (28-32); MEAN CORPUSCULAR HGB CONC 30.5 g/dL (31-35); MEAN CORPUSCULAR VOLUME 93.8 fL (81-99); MONOCYTES # (AUTO) 0.6 (0.2-0.8); MONOCYTES % 4.4 % (4.4-11.3); NEUTROPHILS # (AUTO) 13.2 (2.1-6.9); NEUTROPHILS % 90.4 % (38.7-80.0); PLATELET COUNT 259 x10e3/uL (140-360); RED BLOOD COUNT 4.71 x10e6/uL (3.6-5.1); RED CELL DISTRIBUTION WIDTH 13.5 % (11.7-14.4)
[2020-11-11 07:05] LABS: ANION GAP 15.2 mmol/L (8-16); CALCIUM 9.3 mg/dL (8.4-10.2); CHOL/HDL RATIO 2.5 (3.0-3.6); CREATININE, SERUM 1.09 mg/dL (0.57-1.11); MAGNESIUM 1.7 MG/DL (1.3-2.1); POTASSIUM 4.2 mmol/L (3.5-5.1); THYROID STIMULATING HORMONE 0.561 uIU/mL (0.350-4.940)
[2020-11-11] MEDS: INSULIN REGULAR, HUMAN 100 UNIT/1 ML SQ SCH ×4 (07:30→20:48)
[2020-11-11] MEDS ORDERED: KETOROLAC TROMETHAMINE 30 MG/ML VIAL IM PRN (08:46)
[2020-11-11] MEDS: CARVEDILOL 12.5 MG TAB PO SCH ×2 (09:00→16:09)
[2020-11-11] MEDS: ONDANSETRON HCL INJ 2MG/ML 2ML 2 MG/ML VIAL IV PRN (09:14)
[2020-11-11] MEDS: MONTELUKAST SODIUM 10 MG TAB PO SCH (09:14)
[2020-11-11] MEDS: SODIUM CHLORIDE 0.9% 1000ML 1,000 ML IV SCH ×2 (10:56→22:40)
[2020-11-11] MEDS: TRAMADOL HCL 50 MG TAB PO PRN (16:10)
[2020-11-11] MEDS: SIMVASTATIN 20 MG TAB PO SCH (22:17)
[2020-11-12] VITALS (7 sets, daily range): BP systolic 97–133; BP diastolic 54–100
[2020-11-12] MEDS: TRAMADOL HCL 50 MG TAB PO PRN ×3 (02:34→17:27)
[2020-11-12] MEDS: SODIUM CHLORIDE 0.9% 1000ML 1,000 ML IV SCH ×2 (02:35→23:13)
[2020-11-12] MEDS: CEFTRIAXONE 1 GM in SODIUM CHLORIDE 0.9% 50ML 50 ML IV SCH (04:27)
[2020-11-12] MEDS: METRONIDAZOLE 500MG/NS 100ML 100 ML IV SCH ×4 (06:00→23:40)
[2020-11-12] MEDS: INSULIN REGULAR, HUMAN 100 UNIT/1 ML SQ SCH ×4 (07:30→21:00)
[2020-11-12] MEDS: CARVEDILOL 12.5 MG TAB PO SCH ×2 (08:58→12:43)
[2020-11-12] MEDS: MONTELUKAST SODIUM 10 MG TAB PO SCH (08:58)
[2020-11-12] MEDS: HYDROCODONE/APAP 7.5MG-325MG 1 EA TAB PO PRN (10:12)
[2020-11-12] MEDS: HYOSCYAMINE 0.125 MG TAB PO PRN (17:27)
[2020-11-12] MEDS: SIMVASTATIN 20 MG TAB PO SCH (21:32)
[2020-11-13] VITALS (8 sets, daily range): BP systolic 131–162; BP diastolic 56–72
[2020-11-13] MEDS: CEFTRIAXONE 1 GM in SODIUM CHLORIDE 0.9% 50ML 50 ML IV SCH (03:48)
[2020-11-13] MEDS: TRAMADOL HCL 50 MG TAB PO PRN (03:52)
[2020-11-13] MEDS: METRONIDAZOLE 500MG/NS 100ML 100 ML IV SCH ×3 (05:34→17:37)
[2020-11-13 06:34] LABS: BASOPHILS # (AUTO) 0.1 (0.0-0.1); BASOPHILS % 0.6 % (0.0-1.0); EOSINOPHILS # (AUTO) 0.4 (0.0-0.4); HEMATOCRIT 39.7 % (34.2-44.1); HEMOGLOBIN 12.1 g/dL (12.0-16.0); LYMPHOCYTES % 25.5 % (18.0-39.1); MEAN CORPUSCULAR HEMOGLOBIN 28.5 pg (28-32); MEAN CORPUSCULAR HGB CONC 30.5 g/dL (31-35); MEAN CORPUSCULAR VOLUME 93.4 fL (81-99); MONOCYTES % 12.6 % (4.4-11.3); NEUTROPHILS # (AUTO) 4.4 (2.1-6.9); NEUTROPHILS % 55.9 % (38.7-80.0); PLATELET COUNT 234 x10e3/uL (140-360); RED BLOOD COUNT 4.25 x10e6/uL (3.6-5.1); RED CELL DISTRIBUTION WIDTH 13.6 % (11.7-14.4)
[2020-11-13 07:13] LABS: ALBUMIN 2.5 g/dL (3.5-5.0); ALBUMIN/GLOBULIN RATIO 0.6 (0.8-2.0); ANION GAP 14.3 mmol/L (8-16); CALCIUM 8.5 mg/dL (8.4-10.2); CREATININE, SERUM 0.8 mg/dL (0.57-1.11); POTASSIUM 4.3 mmol/L (3.5-5.1)
[2020-11-13] MEDS: INSULIN REGULAR, HUMAN 100 UNIT/1 ML SQ SCH ×4 (07:30→21:00)
[2020-11-13] MEDS: ONDANSETRON HCL INJ 2MG/ML 2ML 2 MG/ML VIAL IV PRN ×2 (08:05→12:04)
[2020-11-13] MEDS: MONTELUKAST SODIUM 10 MG TAB PO SCH (08:05)
[2020-11-13] MEDS: CARVEDILOL 12.5 MG TAB PO SCH (08:05)
[2020-11-13] MEDS: HYDROCODONE/APAP 7.5MG-325MG 1 EA TAB PO PRN ×3 (08:06→18:37)
[2020-11-13] MEDS: SODIUM CHLORIDE 0.9% 1000ML 1,000 ML IV SCH (15:04)
[2020-11-13] MEDS ORDERED: MAGNESIUM HYDROXIDE 30 ML UDC PO ONE (18:50)
[2020-11-13] MEDS: SIMVASTATIN 20 MG TAB PO SCH (21:14)
[2020-11-14] VITALS (8 sets, daily range): BP systolic 136–191; BP diastolic 65–94
[2020-11-14] MEDS: METRONIDAZOLE 500MG/NS 100ML 100 ML IV SCH ×4 (00:22→17:58)
[2020-11-14] MEDS: HYDROCODONE/APAP 7.5MG-325MG 1 EA TAB PO PRN ×5 (00:27→18:17)
[2020-11-14] MEDS: CEFTRIAXONE 1 GM in SODIUM CHLORIDE 0.9% 50ML 50 ML IV SCH (04:10)
[2020-11-14] MEDS: SODIUM CHLORIDE 0.9% 1000ML 1,000 ML IV SCH ×2 (05:53→16:32)
[2020-11-14 07:07] LABS: BASOPHILS % 0.5 % (0.0-1.0); EOSINOPHILS # (AUTO) 0.4 (0.0-0.4); EOSINOPHILS % 5.2 % (0.0-6.0); HEMATOCRIT 37.6 % (34.2-44.1); HEMOGLOBIN 11.6 g/dL (12.0-16.0); LYMPHOCYTES # (AUTO) 2.2 (1.0-3.2); LYMPHOCYTES % 26.4 % (18.0-39.1); MEAN CORPUSCULAR HEMOGLOBIN 28.2 pg (28-32); MEAN CORPUSCULAR HGB CONC 30.9 g/dL (31-35); MEAN CORPUSCULAR VOLUME 91.3 fL (81-99); MONOCYTES # (AUTO) 0.9 (0.2-0.8); MONOCYTES % 10.6 % (4.4-11.3); NEUTROPHILS # (AUTO) 4.8 (2.1-6.9); NEUTROPHILS % 56.9 % (38.7-80.0); PLATELET COUNT 246 x10e3/uL (140-360); RED BLOOD COUNT 4.12 x10e6/uL (3.6-5.1); RED CELL DISTRIBUTION WIDTH 13.4 % (11.7-14.4)
[2020-11-14 07:30] LABS: ALBUMIN 2.5 g/dL (3.5-5.0); ALBUMIN/GLOBULIN RATIO 0.7 (0.8-2.0); ANION GAP 12.8 mmol/L (8-16); CALCIUM 8.3 mg/dL (8.4-10.2); CREATININE, SERUM 0.72 mg/dL (0.57-1.11); POTASSIUM 3.8 mmol/L (3.5-5.1)
[2020-11-14] MEDS: INSULIN REGULAR, HUMAN 100 UNIT/1 ML SQ SCH ×4 (07:30→20:23)
[2020-11-14] MEDS: MONTELUKAST SODIUM 10 MG TAB PO SCH (08:21)
[2020-11-14] MEDS: CARVEDILOL 12.5 MG TAB PO SCH (08:23)
[2020-11-14] MEDS: ONDANSETRON HCL INJ 2MG/ML 2ML 2 MG/ML VIAL IV PRN ×3 (09:28→23:55)
[2020-11-14] MEDS ORDERED: LACTULOSE SYRUP 20 GM/30 ML UDC PO PRN (12:15)
[2020-11-14] MEDS ORDERED: SIMETHICONE 80 MG CHEW PO ONE (13:00)
[2020-11-14] MEDS: PROMETHAZINE 12.5MG/ NACL 0.9% 12.5 MG/50 ML BAG IV PRN (18:57)
[2020-11-14] MEDS: SIMVASTATIN 20 MG TAB PO SCH (20:22)
[2020-11-15] VITALS: BP 177/88
[2020-11-15] MEDS: METRONIDAZOLE 500MG/NS 100ML 100 ML IV SCH ×4 (00:19→17:13)
[2020-11-15] MEDS: CEFTRIAXONE 1 GM in SODIUM CHLORIDE 0.9% 50ML 50 ML IV SCH (03:35)
[2020-11-15] MEDS: TRAMADOL HCL 50 MG TAB PO PRN ×3 (03:44→17:14)
[2020-11-15 04:00] VITALS: BP 170/73
[2020-11-15 06:03] LABS: BASOPHILS # (AUTO) 0.1 (0.0-0.1); BASOPHILS % 0.7 % (0.0-1.0); EOSINOPHILS # (AUTO) 0.3 (0.0-0.4); EOSINOPHILS % 3.5 % (0.0-6.0); HEMATOCRIT 38.5 % (34.2-44.1); HEMOGLOBIN 12.4 g/dL (12.0-16.0); LYMPHOCYTES # (AUTO) 2.1 (1.0-3.2); MEAN CORPUSCULAR HEMOGLOBIN 29.1 pg (28-32); MEAN CORPUSCULAR HGB CONC 32.2 g/dL (31-35); MEAN CORPUSCULAR VOLUME 90.4 fL (81-99); MONOCYTES # (AUTO) 0.9 (0.2-0.8); MONOCYTES % 10.3 % (4.4-11.3); NEUTROPHILS # (AUTO) 5.6 (2.1-6.9); NEUTROPHILS % 62.2 % (38.7-80.0); PLATELET COUNT 279 x10e3/uL (140-360); RED BLOOD COUNT 4.26 x10e6/uL (3.6-5.1); RED CELL DISTRIBUTION WIDTH 13.6 % (11.7-14.4)
[2020-11-15 06:27] LABS: ALBUMIN 2.6 g/dL (3.5-5.0); ALBUMIN/GLOBULIN RATIO 0.7 (0.8-2.0); ANION GAP 15.8 mmol/L (8-16); CALCIUM 8.5 mg/dL (8.4-10.2); CREATININE, SERUM 0.76 mg/dL (0.57-1.11); POTASSIUM 3.8 mmol/L (3.5-5.1)
[2020-11-15] MEDS: SODIUM CHLORIDE 0.9% 1000ML 1,000 ML IV SCH (06:40)
[2020-11-15] MEDS: INSULIN REGULAR, HUMAN 100 UNIT/1 ML SQ SCH ×3 (07:30→16:30)
[2020-11-15] MEDS ORDERED: LACTOBACILLUS ACIDOPHILUS CAPSULE PO SCH (09:00)
[2020-11-15] MEDS: CARVEDILOL 12.5 MG TAB PO SCH (09:00)
[2020-11-15] MEDS: MONTELUKAST SODIUM 10 MG TAB PO SCH (09:00)
[2020-11-15] MEDS: ONDANSETRON HCL INJ 2MG/ML 2ML 2 MG/ML VIAL IV PRN ×2 (09:35→17:14)
[2020-11-15 09:36] VITALS: BP 167/79
[2020-11-15 09:53] VITALS: BP 167/79
[2020-11-15 13:33] VITALS: BP 142/68
[2020-11-15] MEDS ORDERED: LEVOFLOXACIN250 MG PO (15:34)
[2020-11-15] MEDS ORDERED: ZOFRAN4 MG PO (15:34)
[2020-11-15] MEDS ORDERED: FLAGYL500 MG PO (15:34)
== END 2020-11-15 17:35 | disposition home or self-care (01) | DRG 872 ==
LOC: ER 03:06 → ERHOLD 04:08 → MED/SURG 12:10
PROVIDERS: ADMIT Internal Medicine; ATTEND Internal Medicine
DX: A41.9 Sepsis, unspecified organism (principal); N82.4 Other female intestinal-genital tract fistulae; K57.32 Diverticulitis of large intestine without perforation or abscess without bleeding; N39.0 Urinary tract infection, site not specified; E78.5 Hyperlipidemia, unspecified; Z79.4 Long term (current) use of insulin; E11.69 Type 2 diabetes mellitus with other specified complication; Z79.899 Other long term (current) drug therapy; Z20.822 Contact with and (suspected) exposure to COVID-19
CPT/HCPCS: 36415; 74177; 80048; 80053; 80061; 81001; 82270; 82948; 83036; 83735; 84100; 84443; 85025; 85610; 85730; 87086; 99284; J0360; J0696; J1170; J1817; J1885; J2270; J2405; J2550; J7030; Q9967; U0002

== ENCOUNTER → 2020-12-16 | Outpatient (CLI) | payer OTHER ==
[~2020-12-16] MED LIST changes: +LEVOFLOXACIN250 MG PO; +ZOFRAN4 MG PO
== END ==
LOC: DX 09:47
PROVIDERS: ATTEND Surgery
DX: K57.92 Diverticulitis of intestine, part unspecified, without perforation or abscess without bleeding (principal); N82.4 Other female intestinal-genital tract fistulae
CPT/HCPCS: 74280

== ENCOUNTER 2021-01-29 06:46 | Inpatient (IN) | payer OTHER ==
[2021-01-27 15:29] LABS: BASOPHILS # (AUTO) 0.1 (0.0-0.1); BASOPHILS % 0.7 % (0.0-1.0); EOSINOPHILS # (AUTO) 0.4 (0.0-0.4); EOSINOPHILS % 3.6 % (0.0-6.0); HEMATOCRIT 45.8 % (34.2-44.1); HEMOGLOBIN 14.6 g/dL (12.0-16.0); LYMPHOCYTES # (AUTO) 3.2 (1.0-3.2); LYMPHOCYTES % 29.4 % (18.0-39.1); MEAN CORPUSCULAR HGB CONC 31.9 g/dL (31-35); MEAN CORPUSCULAR VOLUME 87.7 fL (81-99); MONOCYTES # (AUTO) 0.9 (0.2-0.8); MONOCYTES % 8.4 % (4.4-11.3); NEUTROPHILS # (AUTO) 6.2 (2.1-6.9); NEUTROPHILS % 57.5 % (38.7-80.0); PLATELET COUNT 348 x10e3/uL (140-360); RED BLOOD COUNT 5.22 x10e6/uL (3.6-5.1); RED CELL DISTRIBUTION WIDTH 13.9 % (11.7-14.4)
[2021-01-27 15:55] LABS: ALBUMIN 3.5 g/dL (3.5-5.0); ALBUMIN/GLOBULIN RATIO 0.7 (0.8-2.0); ANION GAP 16.6 mmol/L (8-16); CREATININE, SERUM 0.92 mg/dL (0.57-1.11); POTASSIUM 4.6 mmol/L (3.5-5.1)
[2021-01-29] VITALS (9 sets, daily range): BP systolic 97–136; BP diastolic 62–75
[~2021-01-29] VITALS: Ht 172.7 cm; Wt 105.3 kg
[2021-01-29] MEDS ORDERED: POVIDONE IODINE 0.05% 0.05 % ML PO ONE (12:23)
[2021-01-29] MEDS ORDERED: EPHEDRINE SULFATE INJ 50 MG/ML VIAL ONE (12:23)
[2021-01-29] MEDS ORDERED: ROCURONIUM BROMIDE 10 MG/ML 5ML VIAL IV ONE (12:23)
[2021-01-29] MEDS ORDERED: DEXAMETHASONE SOD PHOS INJ 4 MG/ML SDV ONE (12:23)
[2021-01-29] MEDS ORDERED: KETOROLAC TROMETHAMINE 30 MG/ML VIAL ONE (12:23)
[2021-01-29] MEDS ORDERED: SEVOFLURANE INHAL SOLN 250 ML PEN BTL ONE (12:23)
[2021-01-29] MEDS ORDERED: PROPOFOL IV EMULSION 10 MG/ML 20 ML VIAL ONE (12:23)
[2021-01-29] MEDS ORDERED: LIDOCAINE HCL 2% LOCAL INJ 5 ML SDV VIAL INJ ONE (12:23)
[2021-01-29] MEDS ORDERED: ONDANSETRON HCL INJ 2MG/ML 2ML 2 MG/ML VIAL ONE (12:23)
[2021-01-29] MEDS ORDERED: ATROPINE SULFATE 1 MG/ML VIAL ONE (12:23)
[2021-01-29] MEDS ORDERED: NEOSTIGMINE 1 MG/ML 10ML VIAL ONE (12:23)
[2021-01-29] MEDS ORDERED: FENTANYL CITRATE/PF 100MCG/2 ML INJ ONE (13:01)
[2021-01-29] MEDS ORDERED: Morphine 10mg syringe 10 MG/ML INJ ONE (13:01)
[2021-01-29] MEDS ORDERED: MIDAZOLAM HCL 2 MG/2 ML VIAL ONE (13:01)
[2021-01-29] MEDS ORDERED: NEOMYCIN/POLYMYX/BACITR OINT 0.9 GM PKT ONE (14:29)
[2021-01-29] MEDS ORDERED: NALOXONE HCL INJ 0.4 MG/ML AMP IV PRN (14:30)
[2021-01-29] MEDS: SODIUM CHLORIDE 0.9% 250ML IRRIG IR SCH ×3 (14:30→22:29)
[2021-01-29] MEDS ORDERED: ACETAMINOPHEN 1000 MG/100 ML IV PRN (14:30)
[2021-01-29] MEDS: HYDROMORPHONE 0.2MG/ML-SOD CHL 30ML PCA SYRINGE IV PRN (15:11)
[2021-01-29] MEDS ORDERED: HYDROMORPHONE 1MG/1ML INJ ONE (15:12)
[2021-01-29] MEDS ORDERED: DEXTROSE 50% SYRINGE 50 ML IV PRN (16:45)
[2021-01-29] MEDS: CEFTRIAXONE 2 GM in SODIUM CHLORIDE 0.9% 100 ML IV SCH (16:57)
[2021-01-29] MEDS: SODIUM CHLORIDE 0.9% 1000ML 1,000 ML IV SCH (16:57)
[2021-01-29] MEDS: INSULIN REGULAR, HUMAN 100 UNIT/1 ML SQ SCH (17:47)
[2021-01-29] MEDS ORDERED: LACTATED RINGER'S 500 ML IV ONE (19:00)
[2021-01-29] MEDS ORDERED: LACTATED RINGER'S 1,000 ML ONE (19:06)
[2021-01-30] VITALS (18 sets, daily range): BP systolic 98–167; BP diastolic 54–93
[2021-01-30] MEDS: SODIUM CHLORIDE 0.9% 1000ML 1,000 ML IV SCH ×3 (00:30→20:30)
[2021-01-30] MEDS ORDERED: LACTATED RINGER'S 500 ML IV ONE (00:45)
[2021-01-30] MEDS: SODIUM CHLORIDE 0.9% 250ML IRRIG IR SCH ×6 (02:16→22:52)
[2021-01-30] MEDS ORDERED: FUROSEMIDE INJ 10 MG/ML 2 ML VIAL IV ONE (03:15)
[2021-01-30] MEDS ORDERED: FUROSEMIDE INJ 10 MG/ML 2 ML VIAL ONE (03:17)
[2021-01-30] MEDS: HYDROMORPHONE 0.2MG/ML-SOD CHL 30ML PCA SYRINGE IV PRN ×2 (04:52→17:57)
[2021-01-30] MEDS ORDERED: HYDROMORPHONE 0.2MG/ML-SOD CHL 30ML PCA SYRINGE IV ONE (04:55)
[2021-01-30] MEDS: INSULIN REGULAR, HUMAN 100 UNIT/1 ML SQ SCH ×4 (06:00→17:25)
[2021-01-30 07:14] LABS: BASOPHILS % 0.1 % (0.0-1.0); HEMOGLOBIN 11.3 g/dL (12.0-16.0); LYMPHOCYTES # (AUTO) 1.5 (1.0-3.2); LYMPHOCYTES % 8.7 % (18.0-39.1); MEAN CORPUSCULAR HEMOGLOBIN 28.3 pg (28-32); MEAN CORPUSCULAR HGB CONC 30.5 g/dL (31-35); MEAN CORPUSCULAR VOLUME 92.5 fL (81-99); MONOCYTES # (AUTO) 2.2 (0.2-0.8); MONOCYTES % 12.6 % (4.4-11.3); NEUTROPHILS # (AUTO) 13.4 (2.1-6.9); NEUTROPHILS % 78.1 % (38.7-80.0); PLATELET COUNT 309 x10e3/uL (140-360); RED CELL DISTRIBUTION WIDTH 14.1 % (11.7-14.4)
[2021-01-30 07:39] LABS: ANION GAP 12.9 mmol/L (8-16); CALCIUM 8.7 mg/dL (8.4-10.2); CREATININE, SERUM 1.11 mg/dL (0.57-1.11); POTASSIUM 4.9 mmol/L (3.5-5.1)
[2021-01-30] MEDS: ONDANSETRON HCL INJ 2MG/ML 2ML 2 MG/ML VIAL IV PRN ×3 (08:26→23:10)
[2021-01-30] MEDS: DIPHENHYDRAMINE HCL INJ 50 MG/ML VIAL IV PRN (10:45)
[2021-01-30] MEDS: CEFTRIAXONE 2 GM in SODIUM CHLORIDE 0.9% 100 ML IV SCH (17:12)
[2021-01-31] VITALS (14 sets, daily range): BP systolic 105–159; BP diastolic 59–105
[2021-01-31] MEDS: SODIUM CHLORIDE 0.9% 1000ML 1,000 ML IV SCH ×2 (01:13→15:37)
[2021-01-31] MEDS: SODIUM CHLORIDE 0.9% 250ML IRRIG IR SCH ×5 (01:13→17:36)
[2021-01-31] MEDS ORDERED: ACETAMINOPHEN 1000 MG/100 ML 100 ML IV ONE (02:54)
[2021-01-31] MEDS ORDERED: ACETAMINOPHEN 1000 MG/100 ML IV PRN (03:00)
[2021-01-31 05:02] LABS: BASOPHILS % 0.2 % (0.0-1.0); HEMOGLOBIN 10.2 g/dL (12.0-16.0); LYMPHOCYTES % 11.6 % (18.0-39.1); MEAN CORPUSCULAR HEMOGLOBIN 28.5 pg (28-32); MEAN CORPUSCULAR HGB CONC 30.9 g/dL (31-35); MEAN CORPUSCULAR VOLUME 92.2 fL (81-99); MONOCYTES # (AUTO) 2.1 (0.2-0.8); MONOCYTES % 11.9 % (4.4-11.3); NEUTROPHILS # (AUTO) 13.1 (2.1-6.9); NEUTROPHILS % 75.2 % (38.7-80.0); PLATELET COUNT 240 x10e3/uL (140-360); RED BLOOD COUNT 3.58 x10e6/uL (3.6-5.1); RED CELL DISTRIBUTION WIDTH 14.4 % (11.7-14.4)
[2021-01-31 05:29] LABS: CALCIUM 8.4 mg/dL (8.4-10.2); CREATININE, SERUM 0.96 mg/dL (0.57-1.11)
[2021-01-31] MEDS: INSULIN REGULAR, HUMAN 100 UNIT/1 ML SQ SCH ×4 (05:39→18:00)
[2021-01-31] MEDS: HYDROMORPHONE 0.2MG/ML-SOD CHL 30ML PCA SYRINGE IV PRN ×2 (06:12→17:36)
[2021-01-31] MEDS: DIPHENHYDRAMINE HCL INJ 50 MG/ML VIAL IV PRN ×2 (08:13→15:38)
[2021-01-31] MEDS: ONDANSETRON HCL INJ 2MG/ML 2ML 2 MG/ML VIAL IV PRN ×2 (12:10→16:29)
[2021-01-31] MEDS: CEFTRIAXONE 2 GM in SODIUM CHLORIDE 0.9% 100 ML IV SCH (16:29)
[2021-02-01] VITALS (7 sets, daily range): BP systolic 107–152; BP diastolic 65–88
[2021-02-01] MEDS: SODIUM CHLORIDE 0.9% 250ML IRRIG IR SCH ×5 (00:20→15:06)
[2021-02-01] MEDS: BISACODYL 10 MG SUPP PR SCH ×3 (00:23→21:23)
[2021-02-01] MEDS: SODIUM CHLORIDE 0.9% 1000ML 1,000 ML IV SCH ×3 (02:28→22:30)
[2021-02-01] MEDS: INSULIN REGULAR, HUMAN 100 UNIT/1 ML SQ SCH ×5 (06:00→23:47)
[2021-02-01] MEDS: HYDROMORPHONE 0.2MG/ML-SOD CHL 30ML PCA SYRINGE IV PRN (09:14)
[2021-02-01] MEDS: DIPHENHYDRAMINE HCL INJ 50 MG/ML VIAL IV PRN (09:34)
[2021-02-01] MEDS: ONDANSETRON HCL INJ 2MG/ML 2ML 2 MG/ML VIAL IV PRN ×2 (09:34→19:34)
[2021-02-01 09:35] LABS: BASOPHILS # (AUTO) 0.1 (0.0-0.1); BASOPHILS % 0.3 % (0.0-1.0); EOSINOPHILS # (AUTO) 0.1 (0.0-0.4); EOSINOPHILS % 0.5 % (0.0-6.0); HEMATOCRIT 30.6 % (34.2-44.1); HEMOGLOBIN 9.3 g/dL (12.0-16.0); LYMPHOCYTES # (AUTO) 2.6 (1.0-3.2); LYMPHOCYTES % 17.9 % (18.0-39.1); MEAN CORPUSCULAR HEMOGLOBIN 28.5 pg (28-32); MEAN CORPUSCULAR HGB CONC 30.4 g/dL (31-35); MEAN CORPUSCULAR VOLUME 93.9 fL (81-99); MONOCYTES # (AUTO) 1.6 (0.2-0.8); MONOCYTES % 11.1 % (4.4-11.3); NEUTROPHILS # (AUTO) 10.1 (2.1-6.9); NEUTROPHILS % 69.1 % (38.7-80.0); PLATELET COUNT 261 x10e3/uL (140-360); RED BLOOD COUNT 3.26 x10e6/uL (3.6-5.1); RED CELL DISTRIBUTION WIDTH 14.6 % (11.7-14.4)
[2021-02-01 09:59] LABS: ANION GAP 12.5 mmol/L (8-16); CALCIUM 8.3 mg/dL (8.4-10.2); CREATININE, SERUM 0.76 mg/dL (0.57-1.11); POTASSIUM 4.5 mmol/L (3.5-5.1)
[2021-02-01] MEDS: CEFTRIAXONE 2 GM in SODIUM CHLORIDE 0.9% 100 ML IV SCH (17:03)
[2021-02-01] MEDS ORDERED: KETOROLAC TROMETHAMINE 30 MG/ML VIAL IV PRN (23:15)
[2021-02-01] MEDS: Morphine 4mg Syringe 4 MG/ML INJ IV PRN (23:24)
[2021-02-02] VITALS (7 sets, daily range): BP systolic 139–156; BP diastolic 68–80
[2021-02-02] MEDS: SODIUM CHLORIDE 0.9% 1000ML 1,000 ML IV SCH ×2 (02:31→13:28)
[2021-02-02] MEDS: Morphine 4mg Syringe 4 MG/ML INJ IV PRN ×5 (02:35→23:28)
[2021-02-02] MEDS: INSULIN REGULAR, HUMAN 100 UNIT/1 ML SQ SCH ×4 (06:00→23:53)
[2021-02-02] MEDS: BISACODYL 10 MG SUPP PR SCH ×2 (08:09→20:56)
[2021-02-02] MEDS: ONDANSETRON HCL INJ 2MG/ML 2ML 2 MG/ML VIAL IV PRN ×4 (11:03→23:28)
[2021-02-02] MEDS: CEFTRIAXONE 2 GM in SODIUM CHLORIDE 0.9% 100 ML IV SCH (17:05)
[2021-02-03] VITALS (8 sets, daily range): BP systolic 134–156; BP diastolic 63–97
[2021-02-03] MEDS: ONDANSETRON HCL INJ 2MG/ML 2ML 2 MG/ML VIAL IV PRN ×3 (03:30→11:33)
[2021-02-03] MEDS: Morphine 4mg Syringe 4 MG/ML INJ IV PRN ×3 (03:30→11:34)
[2021-02-03] MEDS: INSULIN REGULAR, HUMAN 100 UNIT/1 ML SQ SCH ×3 (05:57→18:00)
[2021-02-03] MEDS: BISACODYL 10 MG SUPP PR SCH (07:44)
[2021-02-03] MEDS: IRBESARTAN 150 MG TAB PO SCH (13:04)
[2021-02-03] MEDS: SODIUM CHLORIDE 0.9% 1000ML 1,000 ML IV SCH (13:37)
[2021-02-03] MEDS: CEFTRIAXONE 2 GM in SODIUM CHLORIDE 0.9% 100 ML IV SCH (16:11)
[2021-02-03] MEDS: HYDROCODONE/APAP 7.5MG-325MG 1 EA TAB PO PRN ×2 (16:11→20:20)
[2021-02-03] MEDS: CARVEDILOL 12.5 MG TAB PO SCH (16:12)
[2021-02-03] MEDS ORDERED: MAGNESIUM HYDROXIDE 30 ML UDC PO ONE (21:00)
[2021-02-04] VITALS (8 sets, daily range): BP systolic 111–164; BP diastolic 59–87
[2021-02-04] MEDS: HYDROCODONE/APAP 7.5MG-325MG 1 EA TAB PO PRN ×6 (00:25→21:36)
[2021-02-04] MEDS: INSULIN REGULAR, HUMAN 100 UNIT/1 ML SQ SCH ×4 (05:10→17:23)
[2021-02-04] MEDS: IRBESARTAN 150 MG TAB PO SCH (08:43)
[2021-02-04] MEDS: CARVEDILOL 12.5 MG TAB PO SCH ×2 (08:43→16:07)
[2021-02-04] MEDS: PANTOPRAZOLE SOD 40 MG TABEC PO SCH (08:43)
[2021-02-04] MEDS ORDERED: ONDANSETRON HCL 4 MG ORAL DISINTEGRATING TAB PO PRN (08:45)
[2021-02-04] MEDS: SODIUM CHLORIDE 0.9% 1000ML 1,000 ML IV SCH (10:07)
[2021-02-04] MEDS: CEFTRIAXONE 2 GM in SODIUM CHLORIDE 0.9% 100 ML IV SCH (15:06)
[2021-02-05] VITALS (8 sets, daily range): BP systolic 137–154; BP diastolic 56–80
[2021-02-05] MEDS: HYDROCODONE/APAP 7.5MG-325MG 1 EA TAB PO PRN ×3 (01:39→10:04)
[2021-02-05] MEDS: INSULIN REGULAR, HUMAN 100 UNIT/1 ML SQ SCH ×3 (05:52→08:35)
[2021-02-05] MEDS: PANTOPRAZOLE SOD 40 MG TABEC PO SCH (08:36)
[2021-02-05] MEDS: CARVEDILOL 12.5 MG TAB PO SCH (08:36)
[2021-02-05] MEDS: IRBESARTAN 150 MG TAB PO SCH (08:37)
== END 2021-02-05 16:45 | disposition home or self-care (01) | DRG 330 ==
LOC: OR 06:46 → PACU V 14:22 → ICU 16:25 → MED/SURG 01-31 20:15
PROVIDERS: ADMIT Surgery; ATTEND Surgery
PROC: 0DBM0ZZ Excision of Descending Colon, Open Approach (ICD-10-PCS; 2021-01-29)
PROC: 0DN80ZZ Release Small Intestine, Open Approach (ICD-10-PCS; 2021-01-29)
PROC: 0DNW0ZZ Release Peritoneum, Open Approach (ICD-10-PCS; 2021-01-29)
PROC: 0DTN0ZZ Resection of Sigmoid Colon, Open Approach (ICD-10-PCS; 2021-01-29)
PROC: 0UBG0ZZ Excision of Vagina, Open Approach (ICD-10-PCS; 2021-01-29)
PROC: 0DBP0ZZ Excision of Rectum, Open Approach (ICD-10-PCS; 2021-01-29)
PROC: 0WQF0ZZ Repair Abdominal Wall, Open Approach (ICD-10-PCS; principal; 2021-01-29 08:31)
DX: K57.32 Diverticulitis of large intestine without perforation or abscess without bleeding (principal); N32.1 Vesicointestinal fistula; K43.9 Ventral hernia without obstruction or gangrene; Z20.822 Contact with and (suspected) exposure to COVID-19; E11.9 Type 2 diabetes mellitus without complications; I10 Essential (primary) hypertension; E66.01 Morbid (severe) obesity due to excess calories; Z68.35 Body mass index [BMI] 35.0-35.9, adult; K66.0 Peritoneal adhesions (postprocedural) (postinfection); Z79.4 Long term (current) use of insulin
CPT/HCPCS: 36415; 71046; 80048; 80053; 82948; 85025; 88307; 93005; 94799; 99251; J0461; J0694; J0696; J1100; J1170; J1200; J1885; J1940; J2001; J2250; J2270; J2405; J2710; J3010; J7030; J7050; J7121; U0002

== ENCOUNTER 2021-03-14 10:56 | Observation (INO) | payer OTHER ==
[2021-03-12 11:15] LABS: BASOPHILS # (AUTO) 0.1 (0.0-0.1); BASOPHILS % 0.6 % (0.0-1.0); EOSINOPHILS # (AUTO) 0.5 (0.0-0.4); EOSINOPHILS % 4.9 % (0.0-6.0); HEMATOCRIT 41.2 % (34.2-44.1); HEMOGLOBIN 12.4 g/dL (12.0-16.0); LYMPHOCYTES # (AUTO) 2.2 (1.0-3.2); LYMPHOCYTES % 22.4 % (18.0-39.1); MEAN CORPUSCULAR HEMOGLOBIN 27.3 pg (28-32); MEAN CORPUSCULAR HGB CONC 30.1 g/dL (31-35); MEAN CORPUSCULAR VOLUME 90.5 fL (81-99); MONOCYTES # (AUTO) 0.9 (0.2-0.8); MONOCYTES % 8.8 % (4.4-11.3); NEUTROPHILS # (AUTO) 6.2 (2.1-6.9); NEUTROPHILS % 63.1 % (38.7-80.0); PLATELET COUNT 371 x10e3/uL (140-360); RED BLOOD COUNT 4.55 x10e6/uL (3.6-5.1); RED CELL DISTRIBUTION WIDTH 13.6 % (11.7-14.4)
[2021-03-12 14:29] LABS: ALBUMIN 3.1 g/dL (3.5-5.0); ALBUMIN/GLOBULIN RATIO 0.6 (0.8-2.0); ANION GAP 14.2 mmol/L (8-16); CREATININE, SERUM 0.99 mg/dL (0.57-1.11); POTASSIUM 4.2 mmol/L (3.5-5.1)
[2021-03-12 14:30] LABS: CALCIUM 9.8 mg/dL (8.4-10.2)
[~2021-03-14] VITALS: Ht 172.7 cm; Wt 92.1 kg
[2021-03-14] MEDS ORDERED: BUPIVACAINE 0.25% 30ML SDV ONE (11:31)
[2021-03-14] MEDS ORDERED: EPHEDRINE SULFATE INJ 50 MG/ML VIAL ONE (12:20)
[2021-03-14] MEDS ORDERED: ONDANSETRON HCL INJ 2MG/ML 2ML 2 MG/ML VIAL ONE (12:20)
[2021-03-14] MEDS ORDERED: CEFTRIAXONE 1 GM VIAL ONE (12:20)
[2021-03-14] MEDS ORDERED: LIDOCAINE HCL 2% LOCAL INJ 5 ML SDV VIAL INJ ONE (12:20)
[2021-03-14] MEDS ORDERED: FAMOTIDINE 20 MG/2 ML VIAL IV ONE (12:20)
[2021-03-14] MEDS ORDERED: PROPOFOL IV EMULSION 10 MG/ML 20 ML VIAL ONE (12:20)
[2021-03-14] MEDS ORDERED: POVIDONE IODINE 0.05% 0.05 % ML PO ONE (12:20)
[2021-03-14] MEDS ORDERED: Morphine 10mg syringe 10 MG/ML INJ ONE (13:00)
[2021-03-14] MEDS ORDERED: MIDAZOLAM HCL 2 MG/2 ML VIAL ONE (13:00)
[2021-03-14] MEDS ORDERED: KETAMINE HCL INJ 50 MG/ML 10 ML VIAL ONE (13:00)
[2021-03-14] MEDS ORDERED: FENTANYL CITRATE/PF 100MCG/2 ML INJ ONE ×2 (13:00→14:09)
[2021-03-14] MEDS ORDERED: HYOSCYAMINE 0.125 MG TAB PO PRN (13:45)
[2021-03-14] MEDS ORDERED: ACETAMINOPHEN 1000 MG/100 ML IV PRN (13:45)
[2021-03-14] MEDS ORDERED: ONDANSETRON HCL INJ 2MG/ML 2ML 2 MG/ML VIAL IV PRN (13:45)
[2021-03-14] MEDS ORDERED: Morphine 2mg Syringe 2 MG/ML SYR ONE ×3 (14:37→16:51)
[2021-03-14] MEDS ORDERED: DIPHENHYDRAMINE HCL INJ 50 MG/ML VIAL ONE (15:22)
[2021-03-14 17:00] VITALS: BP_SYST 148; BP_DIAS 73; BP_DIAS 83
[2021-03-14] MEDS: CARVEDILOL 12.5 MG TAB PO SCH ×2 (17:00→17:23)
[2021-03-14] MEDS: SODIUM CHLORIDE 0.9% 1000ML 1,000 ML IV SCH (17:23)
[2021-03-14] MEDS: CLINDAMYCIN PHOS 900MG/ 50ML 50 ML IV SCH (17:45)
[2021-03-14] MEDS: HYDROCODONE/APAP 7.5MG-325MG 1 EA TAB PO PRN ×2 (17:47→22:48)
[2021-03-14] MEDS ORDERED: INSULIN REGULAR, HUMAN 100 UNIT/1 ML SQ SCH (18:00)
[2021-03-14] MEDS: Morphine 4mg Syringe 4 MG/ML INJ IV PRN (20:37)
[2021-03-14 20:53] VITALS: BP 125/65
[2021-03-14 21:00] VITALS: BP 125/65
[2021-03-15] VITALS (10 sets, daily range): BP systolic 101–128; BP diastolic 54–65
[2021-03-15] MEDS: CLINDAMYCIN PHOS 900MG/ 50ML 50 ML IV SCH ×3 (00:56→17:26)
[2021-03-15] MEDS: SODIUM CHLORIDE 0.9% 1000ML 1,000 ML IV SCH ×2 (02:42→12:01)
[2021-03-15] MEDS: Morphine 4mg Syringe 4 MG/ML INJ IV PRN (03:52)
[2021-03-15 07:06] LABS: BASOPHILS # (AUTO) 0.1 (0.0-0.1); BASOPHILS % 0.7 % (0.0-1.0); EOSINOPHILS # (AUTO) 0.3 (0.0-0.4); EOSINOPHILS % 4.5 % (0.0-6.0); HEMATOCRIT 35.6 % (34.2-44.1); HEMOGLOBIN 10.6 g/dL (12.0-16.0); LYMPHOCYTES # (AUTO) 1.6 (1.0-3.2); LYMPHOCYTES % 21.3 % (18.0-39.1); MEAN CORPUSCULAR HEMOGLOBIN 27.4 pg (28-32); MEAN CORPUSCULAR HGB CONC 29.8 g/dL (31-35); MONOCYTES # (AUTO) 0.8 (0.2-0.8); MONOCYTES % 10.6 % (4.4-11.3); NEUTROPHILS # (AUTO) 4.6 (2.1-6.9); NEUTROPHILS % 62.6 % (38.7-80.0); PLATELET COUNT 272 x10e3/uL (140-360); RED BLOOD COUNT 3.87 x10e6/uL (3.6-5.1); RED CELL DISTRIBUTION WIDTH 13.1 % (11.7-14.4)
[2021-03-15] MEDS: INSULIN REGULAR, HUMAN 100 UNIT/1 ML SQ SCH ×4 (07:30→21:00)
[2021-03-15 07:34] LABS: ANION GAP 13.7 mmol/L (8-16); CALCIUM 8.9 mg/dL (8.4-10.2); CREATININE, SERUM 0.84 mg/dL (0.57-1.11); POTASSIUM 4.7 mmol/L (3.5-5.1)
[2021-03-15] MEDS: CARVEDILOL 12.5 MG TAB PO SCH ×2 (08:41→17:26)
[2021-03-15] MEDS: MONTELUKAST SODIUM 10 MG TAB PO SCH (08:41)
[2021-03-15] MEDS: HYDROCODONE/APAP 7.5MG-325MG 1 EA TAB PO PRN ×3 (08:49→17:27)
[2021-03-15] MEDS ORDERED: SIMETHICONE 80 MG CHEW PO PRN (11:00)
[2021-03-15] MEDS ORDERED: LORAZEPAM 0.5 MG TAB PO NR (11:00)
[2021-03-15] MEDS: CEFTRIAXONE 2 GM in SODIUM CHLORIDE 0.9% 100 ML IV SCH (11:16)
[2021-03-15] MEDS ORDERED: SIMETHICONE 80 MG CHEW PO ONE (11:35)
[2021-03-16 00:45] VITALS: BP 124/59
[2021-03-16] MEDS: CLINDAMYCIN PHOS 900MG/ 50ML 50 ML IV SCH ×3 (01:13→16:29)
[2021-03-16] MEDS: HYDROCODONE/APAP 7.5MG-325MG 1 EA TAB PO PRN ×4 (01:13→14:19)
[2021-03-16] MEDS: SODIUM CHLORIDE 0.9% 1000ML 1,000 ML IV SCH (01:13)
[2021-03-16 05:17] VITALS: BP 116/56
[2021-03-16] MEDS: INSULIN REGULAR, HUMAN 100 UNIT/1 ML SQ SCH ×3 (07:30→16:28)
[2021-03-16 07:57] VITALS: BP 130/60
[2021-03-16 08:40] VITALS: BP 130/60
[2021-03-16] MEDS: MONTELUKAST SODIUM 10 MG TAB PO SCH (08:49)
[2021-03-16] MEDS: CARVEDILOL 12.5 MG TAB PO SCH ×3 (08:49→16:28)
[2021-03-16 11:10] VITALS: BP 96/48
[2021-03-16] MEDS: CEFTRIAXONE 2 GM in SODIUM CHLORIDE 0.9% 100 ML IV SCH (11:28)
[2021-03-16 14:39] VITALS: BP 126/60
== END 2021-03-16 17:46 | disposition home or self-care (01) ==
LOC: OR 10:56 → PACU V 13:33 → MED/SURG 16:55
PROVIDERS: ADMIT Surgery; ATTEND Surgery
DX: S31.109D Unspecified open wound of abdominal wall, unspecified quadrant without penetration into peritoneal cavity, subsequent encounter (principal); Z20.822 Contact with and (suspected) exposure to COVID-19; I10 Essential (primary) hypertension; E78.5 Hyperlipidemia, unspecified
CPT/HCPCS: 13101; 13102 ×3; 22901; 36415 ×4; 80048; 80053; 82948 ×3; 85025 ×2; 93005; C9113 ×3; G0378 ×3; J0696 ×3; J1200; J2001; J2250; J2270 ×4; J2405; J2704; J3010; J7030 ×3; J7050 ×2; U0002

== ENCOUNTER 2021-07-06 13:25 | Emergency (ER) | payer OTHER ==
[~2021-07-06] VITALS: Ht 172.7 cm; Wt 97.6 kg
[2021-07-06] MEDS ORDERED: LANTUS 3ML100 UNITS/ (13:50)
[2021-07-06] MEDS ORDERED: KETOROLAC TROME10 MG PO (15:16)
== END 2021-07-06 15:20 | disposition home or self-care (01) ==
LOC: FSED 14:00
DX: S20.214A Contusion of middle front wall of thorax, initial encounter (principal); S30.1XXA Contusion of abdominal wall, initial encounter; V89.2XXA Person injured in unspecified motor-vehicle accident, traffic, initial encounter; Y92.488 Other paved roadways as the place of occurrence of the external cause; I10 Essential (primary) hypertension; E11.9 Type 2 diabetes mellitus without complications; E78.5 Hyperlipidemia, unspecified
CPT/HCPCS: 71250; 74176; 99283

== ENCOUNTER 2023-07-05 12:00 | Emergency (ER) | payer OTHER ==
[~2023-07-05] VITALS: Ht 172.7 cm; Wt 108.0 kg
[~2023-07-05 12:00] MED LIST changes: +KETOROLAC TROME10 MG PO; +LANTUS 3ML100 UNITS/
[2023-07-05] MEDS ORDERED: CEFDINIR300 MG PO (15:19)
[2023-07-05] MEDS ORDERED: PROVENTIL HFA6.7 GM INH (15:19)
[2023-07-05] MEDS ORDERED: PANTOPRAZOLE SO40 MG PO (15:20)
[2023-07-05 15:34] VITALS: O2SAT 94
== END 2023-07-05 15:34 | disposition home or self-care (01) ==
LOC: FSED 12:24
DX: R05.9 Cough, unspecified (principal); R07.9 Chest pain, unspecified; I10 Essential (primary) hypertension; E11.9 Type 2 diabetes mellitus without complications; Z11.52 Encounter for screening for COVID-19; R94.31 Abnormal electrocardiogram [ECG] [EKG]; Z87.19 Personal history of other diseases of the digestive system
CPT/HCPCS: 0223U; 71046; 80053; 81003; 82553; 84484; 85025; 87400; 93005; 99284

== ENCOUNTER 2023-10-02 09:09 | Emergency (ER) | payer OTHER, MEDICARE ==
[~2023-10-02] VITALS: Ht 172.7 cm; Wt 108.0 kg
[~2023-10-02 09:09] MED LIST changes: +CEFDINIR300 MG PO; +PANTOPRAZOLE SO40 MG PO; +PROVENTIL HFA6.7 GM INH
[2023-10-02 09:47] LABS: BASOPHILS # (AUTO) 0.1 (0.0-0.1); BASOPHILS % 0.7 % (0.0-1.0); EOSINOPHILS # (AUTO) 0.4 (0.0-0.4); EOSINOPHILS % 4.1 % (0.0-6.0); HEMATOCRIT 39.4 % (34.2-44.1); LYMPHOCYTES # (AUTO) 1.9 (1.0-3.2); LYMPHOCYTES % 21.6 % (18.0-39.1); MEAN CORPUSCULAR HEMOGLOBIN 25.9 pg (28-32); MEAN CORPUSCULAR HGB CONC 30.5 g/dL (31-35); MEAN CORPUSCULAR VOLUME 85.1 fL (81-99); MONOCYTES # (AUTO) 0.8 (0.2-0.8); MONOCYTES % 8.9 % (4.4-11.3); NEUTROPHILS # (AUTO) 5.8 (2.1-6.9); NEUTROPHILS % 64.5 % (38.7-80.0); PLATELET COUNT 277 x10e3/uL (140-360); RED BLOOD COUNT 4.63 x10e6/uL (3.6-5.1); RED CELL DISTRIBUTION WIDTH 16.2 % (11.7-14.4); WHITE BLOOD COUNT 8.92 x10e3/uL (4.8-10.8)
[2023-10-02] MEDS ORDERED: DIATRIZOATE MEGL/DIATRIZOA SOD 30 ML BTL PO ONE (09:49)
[2023-10-02 09:52] LABS: INR 0.98; PROTHROMBIN TIME 13.5 seconds (11.9-14.5)
[2023-10-02 09:53] LABS: PARTIAL THROMBOPLASTIN TIME 30.9 seconds (23.8-35.5)
[2023-10-02 10:01] LABS: ALBUMIN 3.9 g/dL (3.5-5.0); ALBUMIN/GLOBULIN RATIO 0.9 (0.8-2.0); ANION GAP 16.7 mmol/L (8-16); BILIRUBIN,TOTAL 0.6 mg/dL (0.2-1.2); CALCIUM 10.1 mg/dL (8.4-10.2); CREATININE, SERUM 1.23 mg/dL (0.57-1.11); MAGNESIUM 1.7 MG/DL (1.3-2.1); POTASSIUM 4.7 mmol/L (3.5-5.1); TOTAL PROTEIN 8.2 g/dL (6.5-8.1)
[2023-10-02 10:10] LABS: CLARITY,URINE CLEAR (CLEAR); COLOR,URINE AMBER (YELLOW)
[2023-10-02 10:11] LABS: BILIRUBIN,URINE SMALL (NEGATIVE); GLUCOSE, URINE NEGATIVE (NEGATIVE); LEUKOCYTE ESTERASE ,URINE TRACE (NEGATIVE); NITRITE,URINE NEGATIVE (NEGATIVE); PH,URINE 6.5 (5 - 7); PROTEIN,URINE DIPSTICK 1+ (NEGATIVE); URINE UROBILINOGEN 0.2 mg/dL (0.2 - 1)
[2023-10-02 10:12] LABS: KETONES,URINE TRACE (NEGATIVE)
[2023-10-02] MEDS: SODIUM CHLORIDE 0.9% 1000ML 1,000 ML IV STA (10:29)
[2023-10-02] MEDS: ONDANSETRON HCL INJ 2MG/ML 2ML 2 MG/ML VIAL IV STA (10:30)
[2023-10-02 10:32] LABS: BACTERIA,URINE FEW /HPF; EPITHELIAL CELLS,URINE MODERATE /LPF; RBC,URINE 0-5 /HPF (0-5); WBC,URINE (MAN) 0-5 /HPF (0-5)
[2023-10-02 10:33] LABS: HYALINE CASTS 0-1 (0-1); MUCUS,URINE FEW (RARE); TRANSITIONAL EPI CELLS,URINE FEW
[2023-10-02] MEDS ORDERED: IOPAMIDOL 370 MG/ML 100 ML INFUS..BTL INJ ONE (10:42)
[2023-10-02] MEDS: Morphine 4mg INJECTION 4 MG/ML INJ IV STA (10:57)
[2023-10-02] MEDS ORDERED: ONDANSETRON ODT4 MG PO (12:24)
[2023-10-02] MEDS ORDERED: DICYCLOMINE HCL20 MG PO (12:24)
[2023-10-02 13:06] VITALS: PULSE 70; RESP 17; TEMP 97.8; O2SAT 95
== END 2023-10-02 13:04 | disposition home or self-care (01) ==
LOC: ER 09:40
DX: R10.32 Left lower quadrant pain (principal); N28.9 Disorder of kidney and ureter, unspecified; R19.7 Diarrhea, unspecified; E86.0 Dehydration; E11.65 Type 2 diabetes mellitus with hyperglycemia; I10 Essential (primary) hypertension; E78.5 Hyperlipidemia, unspecified; Z87.19 Personal history of other diseases of the digestive system
CPT/HCPCS: 36415; 71045; 74177; 80053; 81001; 83735; 85025; 85610; 85730; 87086; 99284; J2270; J2405; J2470; J7030; Q9963; Q9967

== ENCOUNTER 2024-11-09 11:50 | Observation (INO) | payer MEDICARE ==
[~2024-11-09] VITALS: Ht 172.7 cm; Wt 96.6 kg
[~2024-11-09 11:50] MED LIST changes: +DICYCLOMINE HCL20 MG PO
[2024-11-09 12:09] VITALS: TEMP 97.7
[2024-11-09] MEDS: ASPIRIN 81 MG CHEW TAB PO STA (13:06)
[2024-11-09] MEDS: MAGNESIUM/ALUMINUM/SIMETHICONE 30 ML UDC PO ONE (13:06)
[2024-11-09] MEDS: ONDANSETRON HCL INJ 2MG/ML 2ML 2 MG/ML VIAL IV STA (13:07)
[2024-11-09] MEDS: SODIUM CHLORIDE 0.9% 1000ML 1,000 ML IV STA (13:07)
[2024-11-09 13:08] LABS: BASOPHILS % 0.6 % (0.0-1.0); EOSINOPHILS % 3.9 % (0.0-6.0); LYMPHOCYTES % 20.8 % (18.0-39.1); MONOCYTES % 8.4 % (4.4-11.3); NEUTROPHILS % 66.1 % (38.7-80.0); RED CELL DISTRIBUTION WIDTH 15.4 % (11.7-14.4)
[2024-11-09 13:22] LABS: EST GLOMERULAR FILTRATION RATE 47 ML/MIN (>=60)
[2024-11-09 13:36] LABS: INR 0.98
[2024-11-09] MEDS ORDERED: IOPAMIDOL 370 MG/ML 100 ML INFUS..BTL INJ ONE (14:23)
[2024-11-09] MEDS: SODIUM CHLORIDE 0.9% 1000ML 1,000 ML IV SCH (17:03)
[2024-11-09 18:00] VITALS: PULSE 88; RESP 20
[2024-11-09 20:16] VITALS: BP 99/74; PULSE 87; RESP 18; TEMP 98.1; O2SAT 96
[2024-11-09] MEDS: FAMOTIDINE 20 MG/2 ML VIAL IV SCH (20:26)
[2024-11-09] MEDS: ONDANSETRON HCL INJ 2MG/ML 2ML 2 MG/ML VIAL IV PRN (20:41)
[2024-11-09 21:00] VITALS: BP 99/74; PULSE 87; RESP 18; TEMP 98.1; O2SAT 96
[2024-11-09 22:55] VITALS: BP 143/71; PULSE 90; RESP 20; TEMP 97.9; O2SAT 93
[2024-11-10] VITALS (7 sets, daily range): BP systolic 101–128; BP diastolic 43–85; PULSE 84–97; RESP 17–20; TEMP 97.7–98.4; O2SAT 91–94
[2024-11-10 06:53] LABS: BASOPHILS % 0.9 % (0.0-1.0); EOSINOPHILS % 3.2 % (0.0-6.0); LYMPHOCYTES % 27.5 % (18.0-39.1); MONOCYTES % 9.8 % (4.4-11.3); NEUTROPHILS % 58.5 % (38.7-80.0); RED CELL DISTRIBUTION WIDTH 15.6 % (11.7-14.4)
[2024-11-10 07:17] LABS: CHOL/HDL RATIO 2.5 (3.0-3.6); EST GLOMERULAR FILTRATION RATE 50.0 ML/MIN (>=60); LDL CHOLESTEROL 68.0 MG/DL (60-130)
[2024-11-10] MEDS: ASPIRIN 81 MG ENTERIC COATED PO SCH (09:04)
[2024-11-10] MEDS ORDERED: DEXTROSE 50% SYRINGE 50 ML IV PRN (17:15)
[2024-11-10] MEDS ORDERED: IBUPROFEN 400 MG TAB PO PRN (17:45)
[2024-11-10] MEDS: DICYCLOMINE HCL 20 MG TAB PO PRN (17:54)
[2024-11-10] MEDS: INSULIN LISPRO 100 UNIT/1 ML 3ML VIAL SQ SCH (21:00)
[2024-11-10] MEDS: MAGNESIUM HYDROXIDE 30 ML UDC PO SCH (22:33)
[2024-11-10] MEDS: POLYETHYLENE GLYCOL 3350 17 GM PACK PO SCH (22:34)
[2024-11-11] VITALS: BP 98/73; PULSE 84; RESP 16; TEMP 98.1; O2SAT 91
[2024-11-11 05:27] VITALS: BP 133/57; PULSE 79; RESP 20; TEMP 98.1; O2SAT 97
[2024-11-11 06:37] LABS: BASOPHILS % 0.8 % (0.0-1.0); EOSINOPHILS % 3.2 % (0.0-6.0); LYMPHOCYTES % 26.1 % (18.0-39.1); MONOCYTES % 11.0 % (4.4-11.3); NEUTROPHILS % 58.6 % (38.7-80.0); RED CELL DISTRIBUTION WIDTH 15.8 % (11.7-14.4)
[2024-11-11 06:50] LABS: EST GLOMERULAR FILTRATION RATE 65.0 ML/MIN (>=60)
[2024-11-11 08:00] VITALS: BP 133/66; PULSE 78; RESP 18; TEMP 97.9; O2SAT 96
[2024-11-11 09:00] VITALS: BP 133/57; PULSE 79; RESP 20; TEMP 98.1; O2SAT 97
[2024-11-11 09:06] VITALS: BP 133/66; PULSE 78
[2024-11-11] MEDS: CARVEDILOL 12.5 MG TAB PO ONE (09:06)
== END 2024-11-11 10:50 | disposition home or self-care (01) ==
LOC: ER 12:22 → ERHOLD 16:21 → MED/SURG3 20:18
PROVIDERS: ADMIT Internal Medicine; ATTEND Internal Medicine
DX: R07.89 Other chest pain (principal); D64.9 Anemia, unspecified; E11.65 Type 2 diabetes mellitus with hyperglycemia; E78.5 Hyperlipidemia, unspecified; I13.10 Hypertensive heart and chronic kidney disease without heart failure, with stage 1 through stage 4 chronic kidney disease, or unspecified chronic kidney disease; N18.31 Chronic kidney disease, stage 3a; E11.22 Type 2 diabetes mellitus with diabetic chronic kidney disease; M19.90 Unspecified osteoarthritis, unspecified site; Z79.4 Long term (current) use of insulin
CPT/HCPCS: 36415 ×3; 71045; 71260; 74018; 74177; 80053 ×3; 80061; 82550 ×2; 82948 ×3; 83036; 83690; 83735; 83880; 84484 ×2; 85025 ×3; 85379; 85610; 85730; 93005; 99252; 99284; G0378 ×3; J1308 ×3; J2405 ×3; J2470; J7030 ×3; Q9967